=== PATIENT | female | born 1990 | race Caucasian/White ===

== ENCOUNTER 2024-10-11 00:51 | Emergency (ER) | payer OTHER ==
[2024-10-11 01:00] VITALS: BMI 20.9
[2024-10-11] MEDS: ONDANSETRON 4 MG/2 ML VIAL IVPUSH ONE (01:36)
[2024-10-11] MEDS: LACTATED RINGERS SOLUTION 1000 ML INFUS.BAG IV ONE (01:36)
[2024-10-11] MEDS: SODIUM CHLORIDE 0.9% 500 ML INFUS.BAG IV ONE ×2 (01:36→02:30)
[2024-10-11] MEDS: FAMOTIDINE 20 MG/50 ML IVPB 20 MG/50 ML MG IVPB ONE (01:37)
[2024-10-11 01:51] LABS: BASO % 0.2 % (0-2.0); HEMOGLOBIN 11.4 GM/dL (10.7-15.3); LYMPH % 18.7 % (8-40); MCH 31.4 pg (25.7-33.7); MCHC 34.4 g/dl (32.0-36.0); MEAN CELL VOLUME 91.5 fl (80-96); MEAN PLT VOLUME 7.3 fl (7.5-11.1); MONO % 8.4 % (3.8-10.2); NEUT % 71.7 % (42.8-82.8); PLATELET COUNT 191 10^3/uL (134-434); RBC 3.61 M/mm3 (3.60-5.2); RDW 13.1 % (11.6-15.6); WHITE BLOOD COUNT 10.6 K/mm3 (4.0-10.0)
[2024-10-11 01:56] LABS: VENOUS BASE EXCESS -0.6 mmol/L (-2-2); VENOUS O2 SATURATION 68.8 % (70-80); VENOUS PH 7.422 (7.310-7.410)
[2024-10-11] MEDS ORDERED: ACETAMINOPHEN INJECTION 100 ML ONE (02:05)
[2024-10-11 02:12] LABS: POTASSIUM 3.4 mmol/L (3.5-5.1)
[2024-10-11 02:13] LABS: CALCIUM 8.7 mg/dL (8.5-10.1)
[2024-10-11 02:14] LABS: MAGNESIUM 1.7 mg/dL (1.8-2.4)
[2024-10-11 02:15] LABS: BLOOD UREA NITROGEN 8.4 mg/dL (7-18)
[2024-10-11 02:18] LABS: CREATININE 0.5 mg/dL (0.55-1.3)
[2024-10-11 02:19] LABS: PHOSPHOROUS 2.7 mg/dL (2.5-4.9)
[2024-10-11 02:21] LABS: BILIRUBIN,TOTAL 0.6 mg/dL (0.2-1)
[2024-10-11 02:22] LABS: TOT PROT 6.6 g/dl (6.4-8.2)
[2024-10-11] MEDS ORDERED: POTASSIUM CHLORIDE ORAL LIQUID 20 MEQ/15 ML ONE (02:24)
[2024-10-11] MEDS: ACETAMINOPHEN 1000 MG/100 ML BAG IVPB ONE (02:30)
[2024-10-11] MEDS: POTASSIUM CHLORIDE ORAL LIQUID 20 MEQ/15 ML PO ONE (02:30)
[2024-10-11 03:01] VITALS: RESP 20
[2024-10-11] MEDS ORDERED: MAGNESIUM SULFATE IN WATER 2 GM/50 ML IVPB IVPB ONE (03:02)
[2024-10-11] MEDS: MAGNESIUM SULFATE IN WATER 2 GM/50 ML IVPB IVPB ONE (03:07)
[2024-10-11 05:37] VITALS: BP 97/66; PULSE 75; TEMP 98.2
== END 2024-10-11 06:00 | disposition home or self-care (01) ==
LOC: JER 00:51
PROC: 3E033GC Introduction of Other Therapeutic Substance into Peripheral Vein, Percutaneous Approach (ICD-10-PCS; principal; 2024-10-11)
PROC: 3E033GC Introduction of Other Therapeutic Substance into Peripheral Vein, Percutaneous Approach (ICD-10-PCS; 2024-10-11)
PROC: 3E033NZ Introduction of Analgesics, Hypnotics, Sedatives into Peripheral Vein, Percutaneous Approach (ICD-10-PCS; 2024-10-11)
PROC: 3E033GC Introduction of Other Therapeutic Substance into Peripheral Vein, Percutaneous Approach (ICD-10-PCS; 2024-10-11)
DX: O21.9 Vomiting of pregnancy, unspecified (principal); O99.411 Diseases of the circulatory system complicating pregnancy, first trimester; I95.9 Hypotension, unspecified; O99.891 Other specified diseases and conditions complicating pregnancy; R00.0 Tachycardia, unspecified; Z20.822 Contact with and (suspected) exposure to COVID-19; Z3A.33 33 weeks gestation of pregnancy
CPT/HCPCS: 0241U-QW; 36415; 71045-TC-FY; 80053; 82550; 82803; 83605; 83690; 83735; 84100; 84484; 85025; 87040; 93005; 93010; 96365; 96367; 96375; 99285-25; J0131

== ENCOUNTER 2024-10-28 11:30 | Inpatient (IN) | payer OTHER ==
[2024-10-28] MEDS: LACTATED RINGERS SOLUTION 1,000 ML IV ONE (12:50)
[2024-10-28] MEDS: ONDANSETRON 4 MG/2 ML VIAL IVPB ONE ×2 (13:00→20:00)
[2024-10-28 13:29] LABS: EPI CELLS 25 /uL (0-25.1); HYALINE CASTS 1 /uL (0-3.1); URINE APPEARANCE CLEAR; URINE BACTERIA 468 /uL (0-1359); URINE BILIRUBIN NEGATIVE (NEGATIVE); URINE COLOR YELLOW; URINE GLUCOSE (UA) NEGATIVE (NEGATIVE); URINE KETONE TRACE (NEGATIVE); URINE LEUK ESTERASE 1+ (NEGATIVE); URINE NITRITE NEGATIVE (NEGATIVE); URINE PROTEIN TRACE (NEGATIVE); URINE RBC 20 /uL (0-23.9); URINE WBC 22 /uL (0-25.8)
[2024-10-28] MEDS ORDERED: FAMOTIDINE 20 MG/50 ML IVPB 20 MG/50 ML MG IVPB ONE (14:05)
[2024-10-28] MEDS: FAMOTIDINE 20 MG/50 ML IVPB 20 MG/50 ML MG IVPB ONE (14:05)
[2024-10-28] MEDS: NIFEdipine 10 MG CAPSULE (FP) PO ONE (14:45)
[2024-10-28 15:41] LABS: HEMATOCRIT 30.6 % (32.4-45.2); HEMOGLOBIN 10.3 GM/dL (10.7-15.3); MCH 31.1 pg (25.7-33.7); MCHC 33.8 g/dl (32.0-36.0); MEAN CELL VOLUME 92.1 fl (80-96); MEAN PLT VOLUME 7.5 fl (7.5-11.1); PLATELET COUNT 214 10^3/uL (134-434); RBC 3.33 M/mm3 (3.60-5.2); RDW 12.7 % (11.6-15.6); WHITE BLOOD COUNT 8.8 K/mm3 (4.0-10.0)
[2024-10-28 16:02] LABS: POTASSIUM 3.9 mmol/L (3.5-5.1)
[2024-10-28 16:04] LABS: CALCIUM 8.6 mg/dL (8.5-10.1)
[2024-10-28 16:05] LABS: ALBUMIN 2.8 g/dl (3.4-5.0); BLOOD UREA NITROGEN 9.1 mg/dL (7-18)
[2024-10-28 16:08] LABS: CREATININE 0.4 mg/dL (0.55-1.3)
[2024-10-28 16:09] LABS: BILIRUBIN,TOTAL 0.8 mg/dL (0.2-1); TOT PROT 6.1 g/dl (6.4-8.2)
[2024-10-28] MEDS ORDERED: NIFEdipine 10 MG CAPSULE (FP) ONE (16:38)
[2024-10-28] MEDS ORDERED: BETAMET ACET/BETAMET NA PH 30 MG/5 ML VIAL ONE (17:17)
[2024-10-28] MEDS ORDERED: TERBUTALINE SULFATE 1 MG/1 ML VIAL SQ ONE (17:17)
[2024-10-28] MEDS: TERBUTALINE SULFATE 1 MG/1 ML VIAL SQ SCH (17:20)
[2024-10-28] MEDS: BETAMET ACET/BETAMET NA PH 30 MG/5 ML VIAL IM SCH (17:30)
[2024-10-28 18:35] LABS: INR 1.12 (0.83-1.09); PROTHROMBIN TIME (PATIENT) 12.3 SEC (9.7-13.0)
[2024-10-28 18:38] LABS: ACTIVATED PTT 23.8 SECONDS (25.2-36.5)
[2024-10-28 19:44] LABS: HIV INTERPRETATION NEGATIVE (NEGATIVE)
[2024-10-28 19:54] VITALS: BMI 21.2
[2024-10-28] MEDS ORDERED: ONDANSETRON 4 MG/2 ML VIAL ONE ×2 (19:58→20:51)
[2024-10-28] MEDS: CITRIC ACID/SODIUM CITRATE 30 ML UNIT-DOSE CUP PO ONE (20:35)
[2024-10-28] MEDS ORDERED: DEXAMETHASONE SOD PHOSPHATE 4 MG/1 ML VIAL ONE (20:51)
[2024-10-28] MEDS ORDERED: KETOROLAC TROMETHAMINE 30 MG/1 ML VIAL ONE (20:51)
[2024-10-28] MEDS ORDERED: OXYTOCIN 10 UNITS/ML VIAL ONE (20:51)
[2024-10-28] MEDS ORDERED: SODIUM CHLORIDE 0.9% P/F 10 ML VIAL IJ ONE (20:51)
[2024-10-28] MEDS ORDERED: FENTANYL CITRATE/PF 50 MCG/ML VIAL ONE (20:51)
[2024-10-28] MEDS ORDERED: morphine SULFATE/PF 1 MG/2 ML (2cc Syringe - QUVA) ONE (20:51)
[2024-10-28] MEDS ORDERED: METOCLOPRAMIDE HCL INJECTION 10 MG/2 ML VIAL ONE (20:51)
[2024-10-28] MEDS ORDERED: ceFAZolin SODIUM 1 GM VIAL ONE (20:51)
[2024-10-28] MEDS ORDERED: GLYCOPYRROLATE 0.2 MG/1 ML VIAL ONE (21:28)
[2024-10-28] MEDS ORDERED: MIDAZOLAM HCL 2 MG/2 ML SINGLE DOSE VIAL ONE (22:06)
[2024-10-28 22:17] LABS: CORD BASE EXCESS -3.6 mmol/L (0-2); CORD HCO3 21.3 mmHg (20-29); CORD pH 7.367 (7.14-7.44)
[2024-10-28] MEDS ORDERED: METOPROLOL TARTRATE 5 MG/5 ML VIAL ONE (22:17)
[2024-10-28 22:21] LABS: CORD BASE EXCESS -3.7 mmol/L (0-2); CORD HCO3 22.4 mmHg (20-29); CORD PCO2 44.4 mmHg (30-78); CORD pH 7.32 (7.14-7.44)
[2024-10-28] MEDS ORDERED: METHYLERGONOVINE MALEATE 0.2 MG/1 ML AMP IM PRN (22:37)
[2024-10-28] MEDS ORDERED: OXYTOCIN 20 UNITS in 0.9% NS 20 UNIT/1,000 ML INFUS.BAG IV ONE (22:53)
[2024-10-28] MEDS: OXYTOCIN 20 UNITS in 0.9% NS 20 UNIT/1,000 ML INFUS.BAG IV SCH (22:55)
[2024-10-28] MEDS ORDERED: IBUPROFEN 800 MG/8 ML IJ IVPB ONE (23:41)
[2024-10-28] MEDS: IBUPROFEN 800 MG/8 ML IJ IVPB ONE (23:45)
[2024-10-29] MEDS: ACETAMINOPHEN 1000 MG/100 ML BAG IVPB PRN (01:37)
[2024-10-29] MEDS: FERROUS SO4 325 MG TABLET (FP) PO SCH (07:37)
[2024-10-29] MEDS: SIMETHICONE 80 MG TAB.CHEW (FP) PO PRN (07:38)
[2024-10-29 08:27] LABS: HEMATOCRIT 28.4 % (32.4-45.2); HEMOGLOBIN 9.8 GM/dL (10.7-15.3); LYMPH % 8.5 % (8-40); MCH 31.8 pg (25.7-33.7); MCHC 34.5 g/dl (32.0-36.0); MEAN CELL VOLUME 92.1 fl (80-96); MEAN PLT VOLUME 7.4 fl (7.5-11.1); NEUT % 87.5 % (42.8-82.8); PLATELET COUNT 194 10^3/uL (134-434); RBC 3.08 M/mm3 (3.60-5.2); RDW 12.4 % (11.6-15.6)
[2024-10-29] MEDS: PRENATAL VITAMINS W/ FOLIC ACID TABLET (FP) PO SCH (09:54)
[2024-10-29] MEDS ORDERED: oxyCODONE HCL 5 MG TABLET PO PRN (10:37)
[2024-10-29] MEDS: ACETAMINOPHEN 325 MG TABLET (FP) PO PRN (12:36)
[2024-10-29 18:31] VITALS: RESP 18
[2024-10-29] MEDS: IBUPROFEN 600 MG TABLET (FP) PO PRN (19:29)
[2024-10-30] MEDS: PANTOPRAZOLE 40 MG TABLET PO SCH (09:13)
[2024-10-30] MEDS: BISACODYL 10 MG SUPP.RECT RC PRN (10:34)
[2024-10-31 07:10] LABS: BASO % 0.1 % (0-2.0); EOS % 0.2 % (0-4.5); HEMATOCRIT 28.9 % (32.4-45.2); HEMOGLOBIN 9.9 GM/dL (10.7-15.3); LYMPH % 18.1 % (8-40); MCH 31.5 pg (25.7-33.7); MCHC 34.1 g/dl (32.0-36.0); MEAN CELL VOLUME 92.2 fl (80-96); MEAN PLT VOLUME 7.3 fl (7.5-11.1); MONO % 8.5 % (3.8-10.2); NEUT % 73.1 % (42.8-82.8); PLATELET COUNT 132 10^3/uL (134-434); RBC 3.13 M/mm3 (3.60-5.2); WHITE BLOOD COUNT 12.4 K/mm3 (4.0-10.0)
[2024-11-01 11:02] VITALS: TEMP 98.4
[2024-11-01 15:30] VITALS: BP 96/61; PULSE 102
== END 2024-11-01 17:15 | disposition home or self-care (01) | DRG 540 ==
LOC: JDEL 11:30 → JLDR 19:30 → J3W 10-29 01:00
PROVIDERS: ADMIT Obstetrics & Gynecology; ATTEND Obstetrics & Gynecology
PROC: 10D00Z1 Extraction of Products of Conception, Low, Open Approach (ICD-10-PCS; principal; 2024-10-28)
DX: O60.14X0 Preterm labor third trimester with preterm delivery third trimester, not applicable or unspecified (principal); O34.211 Maternal care for low transverse scar from previous cesarean delivery; N85.8 Other specified noninflammatory disorders of uterus; O26.893 Other specified pregnancy related conditions, third trimester; K92.0 Hematemesis; Z3A.35 35 weeks gestation of pregnancy; Z37.0 Single live birth
CPT/HCPCS: 36415; 36600; 59025; 59409; 80053; 81003; 82150; 82803; 83690; 85025; 85027; 85610; 85730; 86780; 86803; 86922; 87077; 87086; 87389; 88307-TC; 94010; 96372; J0131